=== PATIENT | male | born 1960 | race Caucasian/White ===

== ENCOUNTER → 2023-04-04 10:29 | Outpatient (CLI) | payer OTHER, SELFPAY ==
[2023-04-04 19:19] LABS: Add Manual Diff / Slide Review NO; Basophils Absolute Auto 100 /uL (0-100); Eosinophils Absolute Auto 100 /uL (0-450); Eosinophils Percent Auto 2.2 % (2-4); Hematocrit 46.7 % (41-53); Hemoglobin 15.7 g/dL (13.5-17.5); Lymphocytes Absolute Auto 1100 /uL (1100-4500); Lymphocytes Percent Auto 19.6 % (25-40); Mean Corpuscular HGB Conc 33.7 % (30-36); Mean Corpuscular Volume 92.1 fL (80-100); Monocytes Absolute Auto 500 /uL (0-900); Monocytes Percent Auto 9.6 % (3-14); Neutrophils Absolute Auto 3900 /uL (1500-7000); Neutrophils Percent Auto 67.6 % (50-75); Platelet Count 210 X10^3/uL (150-400); Red Blood Cell Count 5.07 X10^6/uL (4.5-5.9); Red Cell Distribution Width 13.8 % (11.6-14.8); White Blood Cell Count 5.7 X10^3/uL (4.5-11.0)
[2023-04-04 19:43] LABS: Alanine Aminotransferase 28 IU/L (<50); Albumin 4.9 g/dL (3.5-5.0); Albumin Globulin Ratio 1.8 (1.0-2.8); Alkaline Phosphatase 52 U/L (38-126); Aspartate Aminotransferase 23 IU/L (17-59); BUN Creatinine Ratio 26.7 (6-22); Bilirubin Total 0.7 mg/dL (0.2-1.3); Blood Urea Nitrogen 24 mg/dL (9-20); Calcium 9.8 mg/dL (8.4-10.2); Carbon Dioxide 26 mmol/L (22-32); Chloride 100 mmol/L (98-107); Cholesterol 163 mg/dL (140-199); Estimated Glomerular Filt Rate > 60 mL/min (>60); Globulin 2.8 g/dL (1.7-4.1); Glucose 94 mg/dL (80-110); HDL Cholesterol 61 mg/dL (40-60); HEMOLYSIS < 15 (0-50); LDL Cholesterol Calculated 82 mg/dL (<100); Potassium 4.5 mmol/L (3.4-5.1); Sodium 137 mmol/L (137-145); Total Protein 7.7 g/dL (6.3-8.2); Triglycerides 102 mg/dL (35-150); Uric Acid 7.6 mg/dL (3.5-8.5)
== END ==
PROVIDERS: PCP Family Medicine; Visit Provider Family Medicine
DX: R73.9 Hyperglycemia, unspecified (principal); I10 Essential (primary) hypertension; E78.2 Mixed hyperlipidemia
CPT/HCPCS: 80053; 80061; 83036; 84550; 85025

== ENCOUNTER → 2024-04-22 09:31 | Outpatient (CLI) | payer OTHER, SELFPAY ==
[2024-04-22 19:05] LABS: Add Manual Diff / Slide Review NO; Basophils Absolute Auto 0 /uL (0-100); Basophils Percent Auto 0.3 % (0-2); Eosinophils Absolute Auto 200 /uL (0-450); Eosinophils Percent Auto 3.2 % (2-4); Hematocrit 44.7 % (41-53); Hemoglobin 15.2 g/dL (13.5-17.5); Lymphocytes Absolute Auto 1200 /uL (1100-4500); Lymphocytes Percent Auto 23.3 % (25-40); Mean Corpuscular Hemoglobin 31.2 PG (26-34); Mean Corpuscular Volume 91.7 fL (80-100); Monocytes Absolute Auto 500 /uL (0-900); Monocytes Percent Auto 10.2 % (3-14); Neutrophils Absolute Auto 3200 /uL (1500-7000); Platelet Count 256 X10^3/uL (150-400); Red Blood Cell Count 4.87 X10^6/uL (4.5-5.9); Red Cell Distribution Width 13.4 % (11.6-14.8); White Blood Cell Count 5.1 X10^3/uL (4.5-11.0)
[2024-04-22 20:54] LABS: Alanine Aminotransferase 22 IU/L (<50); Albumin 4.8 g/dL (3.5-5.0); Albumin Globulin Ratio 1.7 (1.0-2.8); Alkaline Phosphatase 58 U/L (38-126); Aspartate Aminotransferase 23 IU/L (17-59); BUN Creatinine Ratio 23.2 (6-22); Bilirubin Total 0.7 mg/dL (0.2-1.3); Blood Urea Nitrogen 23 mg/dL (9-20); Calcium 9.7 mg/dL (8.4-10.2); Carbon Dioxide 28 mmol/L (22-32); Chloride 102 mmol/L (98-107); Cholesterol 164 mg/dL (140-199); Estimated Glomerular Filt Rate > 60 mL/min (>60); Globulin 2.8 g/dL (1.7-4.1); Glucose 97 mg/dL (80-110); HDL Cholesterol 57 mg/dL (40-60); HEMOLYSIS < 15 (0-50); LDL Cholesterol Calculated 89 mg/dL (<100); Potassium 4.4 mmol/L (3.4-5.1); Sodium 137 mmol/L (137-145); Total Protein 7.6 g/dL (6.3-8.2); Triglycerides 90 mg/dL (35-150); Uric Acid 7.7 mg/dL (3.5-8.5)
[2024-04-22 21:13] LABS: Prostate Specific Antigen Scrn 28.9 ng/mL (0.1-4.0)
== END ==
PROVIDERS: PCP Family Medicine; Visit Provider Family Medicine
DX: M10.9 Gout, unspecified (principal); E78.2 Mixed hyperlipidemia; I10 Essential (primary) hypertension; Z12.5 Encounter for screening for malignant neoplasm of prostate
CPT/HCPCS: 80053; 80061; 84550; 85025; G0103

== ENCOUNTER → 2024-05-18 12:59 | Outpatient (CLI) | payer OTHER, SELFPAY ==
[2024-05-18 19:58] LABS: Prostate Specific Antigen Scrn 25.5 ng/mL (0.1-4.0)
== END ==
PROVIDERS: PCP Family Medicine; Visit Provider Family Medicine
DX: Z12.5 Encounter for screening for malignant neoplasm of prostate (principal); R97.20 Elevated prostate specific antigen [PSA]
CPT/HCPCS: G0103

== ENCOUNTER → 2024-07-21 10:45 | Outpatient (CLI) | payer OTHER, SELFPAY ==
--- NOTE | 2024-07-21 10:46 | DI.NM.S_ITS ---
PROCEDURE: [place] BONE SCAN WHOLE BODY RADIOPHARMACEUTICAL: 20.4 mCi Tc-99m MDP IV. INDICATIONS: 63 y/o M w/ newly diagnosed high-risk prostate cancer. TECHNIQUE: Delayed whole-body scintigrams were obtained approximately 3-4 hours after intravenous injection of radiotracer. Anterior and posterior views were acquired from vertex to feet. Additional left and right oblique views of the pelvis were obtained. COMPARISON: None. FINDINGS: No suspicious radiotracer uptake. Degenerative uptake in the shoulders. IMPRESSION: No suspicious radiotracer uptake. Dictated by: Branden Rios M.D. on 07/21/2024 at 16:44 Approved by: Branden Rios M.D. on 07/21/2024 at 16:45
[2024-07-21 11:14] LABS: Estimated Glomerular Filt Rate > 60 mL/min (>60)
--- NOTE | 2024-07-21 12:16 | DI.CT.S_ITS ---
PROCEDURE: CT CHEST ABD PEL W CON INDICATIONS: 63 y/o M w/ newly diagnosed high-risk prostate cancer. TECHNIQUE: After the administration of intravenous contrast, 5 mm thick sections acquired from the lung apices to the symphysis. 5 mm coronal and sagittal reformats were performed, with additional 7 mm MIP reformats through the lungs. For radiation dose reduction, the following was used: automated exposure control, adjustment of mA and/or kV according to patient size. COMPARISON: [place], [place], [place] BONE SCAN WHOLE BODY, 07/21/2024, 11:31. FINDINGS: Image quality: Diagnostic Lungs and pleura: No dense airspace disease. No pleural effusions. Mediastinum, heart, and esophagus: Coronary calcifications. No pathologic lymph nodes by size criteria. Unremarkable esophagus Chest wall and thyroid: Unremarkable Liver: Unremarkable Gallbladder and biliary system: Unremarkable, nondilated Pancreas: No ductal dilation Spleen: Nonenlarged Adrenals: No discrete nodules Kidneys: Bilateral perinephric edematous fat stranding, nonspecific. No hydronephrosis or solid renal mass Vessels and lymph nodes: The main portal vein appears patent. No abdominal aortic aneurysm. Prominent upper abdominal and retroperitoneal lymph nodes are present, none enlarged by size criteria, for example precaval node measures 5 mm in short axis and eugenia hepatis node measures 8 mm in short axis Bowel and peritoneum: No evidence of small bowel obstruction no small bowel obstruction. No pathologic ascites. Body wall: Unremarkable Pelvis: Unremarkable bladder. Heterogeneous enhancement of the prostate is not well assessed on this study. Focal enhancement is seen at the right peripheral zone apex. Bones: There are degenerative changes. IMPRESSION: The primary prostate malignancy is not well assessed on CT. Focal enhancement is seen of the right peripheral zone apex. Consider MRI for local staging if clinically applicable. There are prominent upper abdominal and retroperitoneal lymph nodes, not enlarged by size criteria. Consider prostate PET-CT if clinically indicated. No definite suspicious bone lesions. Bone scan findings are separately dictated Other incidental findings above Dictated by: Justyn Hilario M.D. on 07/21/2024 at 15:33 Approved by: Justyn Hilario M.D. on 07/21/2024 at 15:39
== END ==
PROVIDERS: Radiology Diagnostic Radiology; PCP Family Medicine; Referring Provider Urology; Visit Provider Urology
DX: C61 Malignant neoplasm of prostate (principal); I25.10 Atherosclerotic heart disease of native coronary artery without angina pectoris
CPT/HCPCS: 36415; 71260; 74177; 78306; 82565; A9503; Q9967

== ENCOUNTER → 2024-12-10 10:31 | Outpatient (CLI) | payer MEDICARE, OTHER, SELFPAY ==
[2024-12-10 13:02] LABS: Prostate Specific Antigen < 0.064 ng/mL (0.10-4.00)
== END ==
PROVIDERS: PCP Family Medicine; Referring Provider Student in an Organized Health Care Education/Training Program; Visit Provider Student in an Organized Health Care Education/Training Program
DX: Z98.890 Other specified postprocedural states (principal); Z85.46 Personal history of malignant neoplasm of prostate
CPT/HCPCS: 36415; 84153

== ENCOUNTER → 2025-02-22 14:15 | Outpatient (CLI) | payer MEDICARE, OTHER, SELFPAY ==
[2025-02-22 19:55] LABS: Add Manual Diff / Slide Review NO; Hematocrit 41.7 % (41-53); Hemoglobin 14.1 g/dL (13.5-17.5); Lymphocytes Absolute Auto 900 /uL (1100-4500); Mean Corpuscular HGB Conc 33.8 % (30-36); Mean Corpuscular Hemoglobin 31.5 PG (26-34); Mean Corpuscular Volume 93.2 fL (80-100); Platelet Count 205 X10^3/uL (150-400)
[2025-02-22 20:04] LABS: Alanine Aminotransferase 24 IU/L (<50); Albumin 4.6 g/dL (3.5-5.0); Albumin Globulin Ratio 1.9 (1.0-2.8); Alkaline Phosphatase 65 U/L (38-126); Blood Urea Nitrogen 21 mg/dL (9-20); Calcium 9.6 mg/dL (8.4-10.2); Carbon Dioxide 26 mmol/L (22-32); Chloride 103 mmol/L (98-107); Cholesterol 155 mg/dL (140-199); Estimated Glomerular Filt Rate > 60 mL/min (>60); Globulin 2.4 g/dL (1.7-4.1); Glucose 105 mg/dL (70-99); HDL Cholesterol 72 mg/dL (40-60); HEMOLYSIS 15 (0-50); Potassium 4.2 mmol/L (3.4-5.1); Sodium 137 mmol/L (137-145); Total Protein 7.0 g/dL (6.3-8.2); Triglycerides 58 mg/dL (35-150)
[2025-02-22 20:11] LABS: Hemoglobin A1C% w Est Avg Glu 5.4 % (4.0-6.0)
== END ==
PROVIDERS: PCP Family Medicine; Visit Provider Family Medicine
DX: R73.9 Hyperglycemia, unspecified (principal); I10 Essential (primary) hypertension; E78.2 Mixed hyperlipidemia
CPT/HCPCS: 80053; 80061; 83036; 85025

== ENCOUNTER → 2025-03-25 11:21 | Outpatient (CLI) | payer MEDICARE, OTHER, SELFPAY | PROVIDERS: PCP Family Medicine; Referring Provider Student in an Organized Health Care Education/Training Program; Visit Provider Student in an Organized Health Care Education/Training Program | DX: Z85.46 Personal history of malignant neoplasm of prostate (principal); Z98.890 Other specified postprocedural states | CPT/HCPCS: 36415; 84153 ==

== ENCOUNTER → 2025-06-16 13:32 | Outpatient (CLI) | payer MEDICARE, OTHER, SELFPAY ==
[2025-06-16 18:50] LABS: Hemoglobin A1C% w Est Avg Glu 5.1 % (4.0-6.0)
== END ==
PROVIDERS: PCP Family Medicine; Visit Provider Family Medicine
DX: C61 Malignant neoplasm of prostate (principal); R73.09 Other abnormal glucose
CPT/HCPCS: 83036; 84153